=== PATIENT | female | born 1970 | race Caucasian/White ===

== ENCOUNTER 2019-10-26 08:27 | Outpatient (CLI) | payer BC ==
[2019-10-26] MEDS ORDERED: GADOTERATE MEGLUMINE 7.5 MMOL/15 ML VIAL IV ONE (19:38)
== END 2019-10-26 23:59 | disposition home or self-care (01) ==
LOC: RAD 08:27
PROVIDERS: ATTEND Psychiatry & Neurology Neurology
DX: G40.109 Localization-related (focal) (partial) symptomatic epilepsy and epileptic syndromes with simple partial seizures, not intractable, without status epilepticus (principal); G40.909 Epilepsy, unspecified, not intractable, without status epilepticus
CPT/HCPCS: 36415; 70553; 80164; 80184; A9575

== ENCOUNTER → 2019-12-22 | Outpatient (CLI) | payer BC | END | disposition home or self-care (01) | LOC: RAD 09:39 | PROVIDERS: ATTEND Psychiatry & Neurology Neurology | DX: G40.909 Epilepsy, unspecified, not intractable, without status epilepticus (principal) | CPT/HCPCS: 95819 ==

== ENCOUNTER → 2020-03-27 | Emergency (ER) | payer OTHER ==
[~2020-03-27] MED LIST: TETanus/Pertussis (Acell)/Diphther VAC/PF (Tdap-Adult) 0.5ml syringe IMVAC ONE
[2020-03-27 08:15] VITALS: BP 123/80
== END | disposition home or self-care (01) ==
LOC: ER 08:11
DX: T14.90XA Injury, unspecified, initial encounter (principal); Z77.21 Contact with and (suspected) exposure to potentially hazardous body fluids; K21.9 Gastro-esophageal reflux disease without esophagitis; Z20.3 Contact with and (suspected) exposure to rabies; Z86.69 Personal history of other diseases of the nervous system and sense organs; Z98.51 Tubal ligation status; Z72.89 Other problems related to lifestyle; Z88.8 Allergy status to other drugs, medicaments and biological substances; X58.XXXA Exposure to other specified factors, initial encounter; Y93.89 Activity, other specified; Y92.89 Other specified places as the place of occurrence of the external cause; Y99.8 Other external cause status
CPT/HCPCS: 90471; 90715; 99283

== ENCOUNTER 2020-07-01 12:22 | Outpatient (CLI) | payer BC | END 2020-07-01 23:59 | disposition home or self-care (01) | LOC: LAB 12:22 | PROVIDERS: ATTEND Psychiatry & Neurology Neurology | DX: G40.909 Epilepsy, unspecified, not intractable, without status epilepticus (principal) | CPT/HCPCS: 36415; 80164 ==

== ENCOUNTER 2020-09-25 16:31 | Outpatient (CLI) | payer BC | END 2020-09-25 23:59 | disposition home or self-care (01) | LOC: LAB 16:31 | DX: G40.109 Localization-related (focal) (partial) symptomatic epilepsy and epileptic syndromes with simple partial seizures, not intractable, without status epilepticus (principal) | CPT/HCPCS: 36415; 80164 ==

== ENCOUNTER 2021-11-03 09:16 | Day surgery (SDC) | payer BC ==
[~2021-11-03] VITALS: Ht 157.5 cm; Wt 74.5 kg
[2021-11-03] MEDS ORDERED: MIDAZolam 1 MG/ML 5ML VIAL ONE (09:25)
[2021-11-03] MEDS ORDERED: fentaNYL/PF 50MCG/1 ML 2ML syringe ONE (09:25)
[2021-11-03 09:30] VITALS: BP 121/75
[2021-11-03] MEDS ORDERED: DIVA500T9 PO (09:32)
[2021-11-03] MEDS ORDERED: PHEN60TA11 PO (09:34)
[2021-11-03 11:46] VITALS: BP 98/70
[2021-11-03 11:55] VITALS: BP 101/61
[2021-11-03 12:00] VITALS: BP 101/63
[2021-11-03 12:10] VITALS: BP 95/64
== END 2021-11-03 12:15 | disposition home or self-care (01) ==
LOC: GI LAB 09:16
PROVIDERS: ATTEND Internal Medicine Gastroenterology
DX: Z12.11 Encounter for screening for malignant neoplasm of colon (principal); K57.30 Diverticulosis of large intestine without perforation or abscess without bleeding; K63.5 Polyp of colon; K64.8 Other hemorrhoids; Z80.0 Family history of malignant neoplasm of digestive organs
CPT/HCPCS: 45385; 99152; C1773; J2250; J3010; J7030; Z7512; 99153; A4620

== ENCOUNTER 2021-11-21 11:52 | Outpatient (CLI) | payer BC ==
[~2021-11-21 11:52] MED LIST changes: +DIVA500T9 PO; +PHEN60TA11 PO; -TETanus/Pertussis (Acell)/Diphther VAC/PF (Tdap-Adult) 0.5ml syringe IMVAC ONE
[2021-11-21 12:18] LABS: BASOPHILS % (AUTO) 0.4 % (0-1); EOSINOPHILS # (AUTO) 0.1 X10'3 (0-0.9); EOSINOPHILS % (AUTO) 0.8 % (0-6); HEMOGLOBIN 14.3 g/dl (12.0-16.0); LYMPHOCYTES # (AUTO) 3.2 X10'3 (1.1-4.8); LYMPHOCYTES % (AUTO) 47.2 % (21-51); MEAN CORPUSCULAR HEMOGLOBIN 30.9 PG (27.0-31.0); MEAN CORPUSCULAR HGB CONC 34.2 g/dL (33.0-36.5); MEAN CORPUSCULAR VOLUME 90.5 FL (78-98); MONOCYTES # (AUTO) 0.6 X10'3 (0-0.9); MONOCYTES % (AUTO) 8.2 % (2-12); NEUTROPHILS # (AUTO) 2.9 X10'3 (1.8-7.7); NEUTROPHILS % (AUTO) 43.4 % (42-75); PLATELET COUNT 292 X10'3 (140-440); RED BLOOD COUNT 4.64 X10'6 (4.20-5.60); RED CELL DISTRIBUTION WIDTH 13.8 % (11.5-14.5); WHITE BLOOD COUNT 6.7 X10'3 (4.5-11.0)
[2021-11-21 12:46] LABS: ALANINE AMINOTRANSFERASE 25 U/L (12-78); ALBUMIN 4.1 G/DL (3.4-5.0); ALBUMIN/GLOBULIN RATIO 1.2 (1.1-1.5); ALKALINE PHOSPHATASE 64 IU/L (46-116); ANION GAP 8 (8-16); ASPARTATE AMINO TRANSFERASE 29 U/L (10-37); BILIRUBIN,TOTAL 0.3 MG/DL (0.1-1.0); BLOOD UREA NITROGEN 9 MG/DL (7-18); BUN/CREATININE RATIO 13.4 (6.6-38.0); CALCIUM 8.7 MG/DL (8.5-10.1); CHLORIDE 104 MMOL/L (99-107); CHOL/HDL RATIO 2.4 (0.00-4.99); CHOLESTEROL 215 MG/DL (0-200); CREATININE 0.67 MG/DL (0.40-0.90); GLUCOSE 84 MG/DL (70-104); HDL CHOLESTEROL 90 MG/DL (35-60); LDL CHOLESTEROL 104 MG/DL (50-100); SODIUM 139 MMOL/L (135-145); TOTAL PROTEIN 7.5 G/DL (6.4-8.2); TRIGLYCERIDES 62 MG/DL (20-135); eGFR > 90 ML/MIN
== END 2021-11-21 23:59 | disposition home or self-care (01) ==
LOC: LAB 11:52
PROVIDERS: ATTEND Family Medicine
DX: Z00.00 Encounter for general adult medical examination without abnormal findings (principal); N95.9 Unspecified menopausal and perimenopausal disorder; R53.83 Other fatigue
CPT/HCPCS: 36415; 80053; 80061; 82670; 84443; 85025

== ENCOUNTER 2022-11-17 07:41 | Outpatient (CLI) | payer BC ==
[2022-11-17 08:32] LABS: BASOPHILS % (AUTO) 0.7 % (0-1); EOSINOPHILS # (AUTO) 0.1 X10'3 (0-0.9); EOSINOPHILS % (AUTO) 0.9 % (0-6); HEMATOCRIT 41.1 % (35.0-45.0); HEMOGLOBIN 13.6 g/dl (12.0-16.0); LYMPHOCYTES # (AUTO) 2.3 X10'3 (1.1-4.8); LYMPHOCYTES % (AUTO) 33.8 % (21-51); MEAN CORPUSCULAR HEMOGLOBIN 30.6 PG (27.0-31.0); MEAN CORPUSCULAR HGB CONC 33.1 g/dL (33.0-36.5); MEAN CORPUSCULAR VOLUME 92.5 FL (78-98); MEAN PLATELET VOLUME 8.2 FL (7.4-10.4); MONOCYTES # (AUTO) 0.6 X10'3 (0-0.9); NEUTROPHILS # (AUTO) 3.8 X10'3 (1.8-7.7); NEUTROPHILS % (AUTO) 55.6 % (42-75); PLATELET COUNT 303 X10'3 (140-440); RED BLOOD COUNT 4.45 X10'6 (4.20-5.60); RED CELL DISTRIBUTION WIDTH 13.8 % (11.5-14.5); WHITE BLOOD COUNT 6.7 X10'3 (4.5-11.0)
[2022-11-17 08:40] LABS: ALANINE AMINOTRANSFERASE 19 U/L (12-78); ALBUMIN 3.7 G/DL (3.4-5.0); ALBUMIN/GLOBULIN RATIO 1.1 (1.1-1.5); ALKALINE PHOSPHATASE 57 IU/L (46-116); ANION GAP 7 (8-16); ASPARTATE AMINO TRANSFERASE 25 U/L (10-37); BILIRUBIN,TOTAL 0.3 MG/DL (0.1-1.0); BLOOD UREA NITROGEN 15 MG/DL (7-18); BUN/CREATININE RATIO 21.1 (10.0-20.0); CALCIUM 8.7 MG/DL (8.5-10.1); CHLORIDE 105 MMOL/L (99-107); CHOL/HDL RATIO 2.8 (0.00-4.99); CHOLESTEROL 220 MG/DL (0-200); CREATININE 0.71 MG/DL (0.40-0.90); GLUCOSE 92 MG/DL (70-104); HDL CHOLESTEROL 79 MG/DL (35-60); LDL CHOLESTEROL 103 MG/DL (50-100); POTASSIUM 4.1 MMOL/L (3.5-5.1); SODIUM 139 MMOL/L (135-145); TOTAL CARBON DIOXIDE 27.1 MMOL/L (24-32); TRIGLYCERIDES 77 MG/DL (20-135); VALPROATE 52 UG/ML (50-100); eGFR 87 ML/MIN
== END 2022-11-17 23:59 | disposition home or self-care (01) ==
LOC: LAB 07:41
PROVIDERS: ATTEND Student in an Organized Health Care Education/Training Program
DX: G40.909 Epilepsy, unspecified, not intractable, without status epilepticus (principal)
CPT/HCPCS: 36415; 80053; 80061; 80164; 85025

== ENCOUNTER 2023-10-20 15:32 | Outpatient (CLI) | payer BC | END 2023-10-20 23:59 | disposition home or self-care (01) | LOC: CARD DIAG 15:32 | PROVIDERS: ATTEND Registered Nurse | DX: I34.81 Nonrheumatic mitral (valve) annulus calcification (principal); R06.02 Shortness of breath | CPT/HCPCS: 93306 ==

== ENCOUNTER 2023-10-28 10:50 | Outpatient (CLI) | payer BC ==
[2023-10-28 11:21] LABS: BASOPHILS % (AUTO) 0.4 % (0-1); EOSINOPHILS % (AUTO) 0.7 % (0-6); HEMATOCRIT 39.5 % (35.0-45.0); HEMOGLOBIN 13.4 g/dl (12.0-16.0); LYMPHOCYTES # (AUTO) 3.6 X10'3 (1.1-4.8); LYMPHOCYTES % (AUTO) 57.3 % (21-51); MEAN CORPUSCULAR HEMOGLOBIN 30.7 PG (27.0-31.0); MEAN CORPUSCULAR HGB CONC 33.8 g/dL (33.0-36.5); MEAN CORPUSCULAR VOLUME 90.7 FL (78-98); MEAN PLATELET VOLUME 8.1 FL (7.4-10.4); MONOCYTES # (AUTO) 0.4 X10'3 (0-0.9); MONOCYTES % (AUTO) 6.8 % (2-12); NEUTROPHILS # (AUTO) 2.2 X10'3 (1.8-7.7); NEUTROPHILS % (AUTO) 34.8 % (42-75); PLATELET COUNT 251 X10'3 (140-440); RED BLOOD COUNT 4.35 X10'6 (4.20-5.60); RED CELL DISTRIBUTION WIDTH 13.1 % (11.5-14.5); WHITE BLOOD COUNT 6.2 X10'3 (4.5-11.0)
[2023-10-28 11:47] LABS: ANION GAP 7 (8-16); BILIRUBIN,TOTAL 0.4 MG/DL (0.1-1.0); BLOOD UREA NITROGEN 13 MG/DL (7-18); BUN/CREATININE RATIO 21.7 (10.0-20.0); CALCIUM 8.8 MG/DL (8.5-10.1); CHLORIDE 101 MMOL/L (99-107); GLUCOSE 82 MG/DL (70-104); POTASSIUM 3.8 MMOL/L (3.5-5.1); SODIUM 137 MMOL/L (135-145); TOTAL CARBON DIOXIDE 29.2 MMOL/L (24-32); eGFR > 90 ML/MIN
[2023-10-28 11:48] LABS: ALANINE AMINOTRANSFERASE 30 U/L (12-78); ALBUMIN 3.8 G/DL (3.4-5.0); ALBUMIN/GLOBULIN RATIO 1.1 (1.1-1.5); ALKALINE PHOSPHATASE 62 IU/L (46-116); ASPARTATE AMINO TRANSFERASE 31 U/L (10-37); CHOL/HDL RATIO 2.9 (0.00-4.99); CHOLESTEROL 221 MG/DL (0-200); HDL CHOLESTEROL 76 MG/DL (35-60); LDL CHOLESTEROL 119 MG/DL (50-100); THYROID STIMULATING HORMONE 2.05 ulU/ml (0.34-4.50); TOTAL PROTEIN 7.4 G/DL (6.4-8.2); TRIGLYCERIDES 93 MG/DL (20-135)
[2023-10-28 11:53] LABS: TOTAL CELLS COUNTED 100
[2023-10-28 11:54] LABS: PLATELET ESTIMATE NORMAL
[2023-10-30 15:22] LABS: FOLATE SERUM(FOLIC) 12.5 ng/mL (>3.0)
== END 2023-10-28 23:59 | disposition home or self-care (01) ==
LOC: LAB 10:50
PROVIDERS: ATTEND Registered Nurse
DX: Z00.00 Encounter for general adult medical examination without abnormal findings (principal); Z12.31 Encounter for screening mammogram for malignant neoplasm of breast; L71.9 Rosacea, unspecified; G40.909 Epilepsy, unspecified, not intractable, without status epilepticus; R53.83 Other fatigue; Z13.220 Encounter for screening for lipoid disorders
CPT/HCPCS: 80053; 80061; 82607; 82746; 84443; 85007; 85025

== ENCOUNTER 2024-04-26 15:48 | Outpatient (CLI) | payer BC | END 2024-04-26 23:59 | disposition home or self-care (01) | LOC: RAD 15:48 | PROVIDERS: ATTEND Registered Nurse | DX: M16.0 Bilateral primary osteoarthritis of hip (principal); M25.552 Pain in left hip | CPT/HCPCS: 73502 ==

== ENCOUNTER 2024-04-27 15:58 | Outpatient (CLI) | payer BC ==
[2024-04-29 11:41] LABS: TESTOSTERONE, SERUM 13 ng/dL (4-50)
[2024-05-02 05:33] LABS: ESTROGENS TOTAL 326 pg/mL (.)
== END 2024-04-27 23:59 | disposition home or self-care (01) ==
LOC: LAB 15:58
PROVIDERS: ATTEND Registered Nurse
DX: N95.1 Menopausal and female climacteric states (principal)
CPT/HCPCS: 36415; 82672; 84402; 84403

== ENCOUNTER 2024-06-12 16:16 | Emergency (ER) | payer BC | END 2024-06-12 18:33 | disposition left against medical advice (07) | LOC: ER 16:17 | DX: R79.9 Abnormal finding of blood chemistry, unspecified (principal); Z53.21 Procedure and treatment not carried out due to patient leaving prior to being seen by health care provider; Z88.1 Allergy status to other antibiotic agents; Z88.8 Allergy status to other drugs, medicaments and biological substances ==

== ENCOUNTER 2024-06-13 10:59 | Outpatient (CLI) | payer BC ==
[2024-06-15 08:12] LABS: PROGESTERONE <0.1 ng/mL (.); TESTOSTERONE, SERUM 8 ng/dL (4-50)
[2024-06-15 11:46] LABS: ESTRADIOL <5.0 pg/mL (.)
== END 2024-06-13 23:59 | disposition home or self-care (01) ==
LOC: LAB 10:59
PROVIDERS: ATTEND Registered Nurse
DX: N95.1 Menopausal and female climacteric states (principal)
CPT/HCPCS: 36415; 82670; 82679; 84144; 84402; 84403

== ENCOUNTER 2024-07-05 13:18 | Outpatient (CLI) | payer BC ==
[2024-07-07 11:12] LABS: ESTRADIOL <5.0 pg/mL (.); LUTEINIZING HORMONE 28.9 mIU/mL (.)
== END 2024-07-05 23:59 | disposition home or self-care (01) ==
LOC: LAB 13:18
PROVIDERS: ATTEND Specialist
DX: N95.1 Menopausal and female climacteric states (principal)
CPT/HCPCS: 36415; 82670; 83001; 83002

== ENCOUNTER 2025-01-10 09:34 | Outpatient (CLI) | payer BC ==
[2025-01-10 09:58] LABS: MEAN PLATELET VOLUME 7.9 FL (7.4-10.4); RED CELL DISTRIBUTION WIDTH 14.1 % (11.5-14.5)
[2025-01-10 10:13] LABS: CHOL/HDL RATIO 3.7 (0.00-4.99); CREATININE 0.61 MG/DL (0.40-0.90); LDL CHOLESTEROL 168 MG/DL (50-100); TOTAL CARBON DIOXIDE 29.2 MMOL/L (24-32); VALPROATE 52 UG/ML (50-100); eGFR > 90 ML/MIN
== END 2025-01-10 23:59 | disposition home or self-care (01) ==
LOC: LAB 09:34
PROVIDERS: ATTEND Nurse Practitioner Family
DX: G40.909 Epilepsy, unspecified, not intractable, without status epilepticus (principal); Z51.81 Encounter for therapeutic drug level monitoring; G47.9 Sleep disorder, unspecified; N95.1 Menopausal and female climacteric states; Z13.220 Encounter for screening for lipoid disorders
CPT/HCPCS: 36415; 80053; 80061; 80164; 85025